=== PATIENT | female | born 1960 | race Caucasian/White ===

== ENCOUNTER 2019-09-07 05:25 | Day surgery (SDC) | payer OTHER ==
[~2019-09-07] VITALS: Ht 157.5 cm; Wt 91.6 kg
[2019-09-07] MEDS ORDERED: LEVO0.0712 PO (07:34)
[2019-09-07] MEDS ORDERED: RISP0.2515 PO (07:38)
[2019-09-07] MEDS ORDERED: LIDOCAINE 2% 100 MG/5 ML UJET TP ONE (08:19)
[2019-09-07] MEDS ORDERED: MIDAZOLAM 2 MG/2 ML VIAL ONE (08:19)
[2019-09-07] MEDS ORDERED: fentaNYL 0.05 MG/ML VIAL ONE (08:19)
[2019-09-07] MEDS ORDERED: MIDAZOLAM 2 MG/2 ML VIAL IVP ONE (08:30)
[2019-09-07] MEDS ORDERED: fentaNYL 0.05 MG/ML VIAL IVP ONE (08:32)
== END 2019-09-07 09:40 | disposition home or self-care (01) ==
LOC: MDS 05:25 → MMU 06:05 → MDS 09:40
PROVIDERS: ATTEND Internal Medicine Gastroenterology
DX: K59.00 Constipation, unspecified (principal); K64.8 Other hemorrhoids; K62.5 Hemorrhage of anus and rectum; E03.9 Hypothyroidism, unspecified; E66.9 Obesity, unspecified; F32.9 Major depressive disorder, single episode, unspecified; G47.00 Insomnia, unspecified; Z68.36 Body mass index [BMI] 36.0-36.9, adult; Z86.010 Personal history of colon polyps; Z79.899 Other long term (current) drug therapy; Z72.89 Other problems related to lifestyle; Z90.710 Acquired absence of both cervix and uterus; Z98.890 Other specified postprocedural states
CPT/HCPCS: 45378; J2250; J3010